=== PATIENT | female | born 1960 ===

== ENCOUNTER 2017-10-13 05:50 | Emergency (ER) | payer OTHER, SELFPAY ==
[2017-10-13] MEDS ORDERED: Norepinephrine 8 MG/0.9% NS 250 ML ONE (06:22)
[2017-10-13 06:35] LABS: INR-International Normal Ratio 1.3
[2017-10-13 06:36] LABS: PTT 48.3 SEC (22.9-36.1)
[2017-10-13 06:39] LABS: ALT (SGPT) 369 U/L (8-55); AST (SGOT) 313 U/L (5-34); Albumin 2.9 g/dL (3.5-5.0); Alkaline Phosphatase 159 U/L (40-150); Anion Gap 28 mmol/L (10-20); BUN (Urea Nitrogen) 15 mg/dL (9.8-20.1); Bilirubin, Total 0.3 mg/dL (0.2-1.2); Calc. Creatinine Clearance 0 mL/min (70-130); Calcium 10.4 mg/dL (7.8-10.44); Carbon Dioxide 18 mmol/L (22-29); Chloride 97 mmol/L (98-107); Estimated GFR-MDRD 42; Globulin 2.7 g/dL (2.4-3.5); Potassium 3.1 mmol/L (3.5-5.1); Protein, Total 5.6 g/dL (6.0-8.3); Sodium 140 mmol/L (136-145)
[2017-10-13 06:41] LABS: Glucose 653 mg/dL (70-105)
[2017-10-13 06:42] LABS: CKMB 3.1 ng/mL (0-6.6)
[2017-10-13 06:44] LABS: Troponin I 0.661 ng/mL (< 0.028)
[2017-10-13 06:51] LABS: ALV-art Gradient 528.575 (0-20); Actual Bicarbonate (HCO3a) 15.1 mEq/L (22-26); Analyzer IN Cardio ER; Base Excess (BEa) -14.3 mEq/L (0 (+/-) 2.5); CO2 Tension 48.5 mmHg (35.0-45.0); Calcium, Ionized 1.3 mmol/L (1.12-1.30); Hematocrit-ABG 51.2 % (36.0-47.0); Hemoglobin (Hb) 15.3 g/dL (12.0-16.0); O2 Tension (PaO2) 118.8 mmHg (80.0-100.0); Puncture Site RRA; pH, Arterial 7.11 (7.35-7.45)
[2017-10-13 07:05] LABS: Band 1 % (5-11); Eosinophils 2 % (0-10); Lymphocytes 56 % (21-51); MDiff Complete? YES; Mean Corpuscular HGB CONC 30.9 g/dL (32.0-36.0); Mean Corpuscular Hemoglobin 29.8 pg (27.0-31.0); Mean Corpuscular Volume 96.6 fl (81.0-99.0); Mean Platelet Volume 8.7 fL (7.4-10.4); Metamyelocyte 1 % (0-0); Monocytes 8 % (0-10); Neutrophil 29 % (42-75); PLT Morphology Comment Appears Adequate; Platelet Count 262 thou/uL (130-400); RBC Distribution Width 12.6 % (11.5-14.5); Reactive Lymphocytes 3 % (0-10); Red Blood Cell (RBC) Count 5.02 mill/uL (4.20-5.40); White Blood Cell (WBC) Count 14.9 thou/uL (4.8-10.8)
[2017-10-13 07:16] LABS: Bilirubin Negative (Negative); Blood, Urine Moderate (Negative); Clarity CLOUDY (Clear); Glucose, Urine (Dipstick) >=1000 mg/dL (Negative); Leukocyte Negative (Negative); Nitrite Negative (Negative); Protein, Urine (Dipstick) 300 mg/dL (Neg-Trace); Urobilinogen 0.2 mg/dL (0.2-1.0)
[2017-10-13 07:21] LABS: Bacteria/HPF 1+ HPF (None Seen); Pathc Cast-AUWi Flag 1.49 (0-2.49); Squamous Epithelial 0-3 HPF (0-3)
[2017-10-13 07:24] LABS: Yeast-AUWi Flag 52.8 (0-25.0)
--- NOTE | 2017-10-13 07:32 | RAD ---
SINGLE VIEW OF THE CHEST: COMPARISON: None. HISTORY: Unresponsive patient with respiratory distress. FINDINGS: A single view of the chest shows a normal-size cardiomediastinal silhouette. An endotracheal tube is seen with its tip approximately 2.8 cm from the akua. An NG tube courses off the inferior aspect o f the film. There appears to be an area of airspace opacity in the right hilar region. No pleural e ffusion is seen. IMPRESSION: Right-sided infiltrate versus pulmonary edema. POS: OFF
[2017-10-13 07:45] LABS: Hyaline Casts/LPF NONE SEEN LPF (0-3 Hyaline)
[2017-10-13 07:46] LABS: WBC/HPF 0-3 HPF (0-3); Yeast-All Forms Rare HPF (None Seen)
== END 2017-10-13 07:30 | disposition expired ==
LOC: ERS 05:50
DX: I21.9 Acute myocardial infarction, unspecified (principal); I10 Essential (primary) hypertension; E11.9 Type 2 diabetes mellitus without complications
CPT/HCPCS: 31500; 36556; 71045; 80053; 81003; 81015; 82553; 82805; 84484; 85025; 85610; 85730; 92950; 93005; 94002; 96361; 96365; 96375; 96376; 99292; C1751